=== PATIENT | male | born 1995 | race American Indian/Alaskan Native ===

== ENCOUNTER 2020-12-18 17:47 | Emergency (ER) | payer SELFPAY ==
[2020-12-18 17:53] VITALS: BP 127/84
[2020-12-18] MEDS ORDERED: NEOMY 3.5 MG/BACIT 400 UNITS/POLY B 5000 UNITS/GM OINT PACKET TP ONE (19:18)
[2020-12-18] MEDS ORDERED: ACETAMINOPHEN 500 MG TAB PO ONE (19:18)
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
[2020-12-18] MEDS ORDERED: NAPROXEN 500 MG TAB PO ONE (19:58)
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
== END 2020-12-18 20:25 | disposition home or self-care (01) ==
LOC: ED 17:47
DX: S16.1XXA Strain of muscle, fascia and tendon at neck level, initial encounter (principal); S50.12XA Contusion of left forearm, initial encounter; S80.211A Abrasion, right knee, initial encounter; Z79.899 Other long term (current) drug therapy; V49.49XA Driver injured in collision with other motor vehicles in traffic accident, initial encounter; Y92.410 Unspecified street and highway as the place of occurrence of the external cause; Y93.89 Activity, other specified; Y99.8 Other external cause status
CPT/HCPCS: 73090; 73130; 73562; 99283; A6250